=== PATIENT | female | born 1985 | race Caucasian/White ===

== ENCOUNTER 2019-11-29 11:02 | Outpatient (CLI) | payer BC, SELFPAY ==
--- NOTE | 2019-11-29 11:19 | ECG_ITS ---
Measurements Intervals [place] Rate: 59 P: 30 IN: 171 QRS: 19 QRSD: 99 T: 58 QT: 389 QTc: 387 Interpretive Statements SINUS BRADYCARDIA DELAYED PRECORDIAL R/S TRANSITION MINIMAL Q WAVES- INFERIOR LEADS BASELINE ARTIFACT- II, III, AVF BORDERLINE ECG Electronically Signed On 11-29-2019 11:54:56 FLATTENING MACHINE OPERATOR by Abran Goss D.O.
== END 2019-11-29 11:03 | disposition home or self-care (01) ==
DX: R01.1 Cardiac murmur, unspecified (principal); R00.1 Bradycardia, unspecified
CPT/HCPCS: 93005

== ENCOUNTER → 2023-08-07 13:54 | Outpatient (CLI) | payer BC, SELFPAY ==
--- NOTE | ~2023-08-07 | MM_ITS ---
EXAMINATION: MM screening nallely BI w graciela HISTORY: Baseline screening mammogram TECHNIQUE: Craniocaudal and mediolateral oblique 3-D tomosynthesis images were obtained and synthetic 2-D images were generated. CAD analysis was submitted and interpreted. COMPARISON: None, baseline BREAST PARENCHYMAL COMPOSITION: There are scattered areas of fibroglandular density FINDINGS: No suspicious mass, calcification, or architectural distortion are identified in either tiffanie ast to suggest malignancy. IMPRESSION: 1. No mammographic evidence of malignancy. 2. Recommend routine screening mammography in one year. BI-RADS Category 1: Negative Reviewed, dictated and finalized at location A.
== END ==
PROVIDERS: PCP Obstetrics & Gynecology; Visit Provider Obstetrics & Gynecology
DX: Z12.31 Encounter for screening mammogram for malignant neoplasm of breast (principal)
CPT/HCPCS: 77063; 77067

== ENCOUNTER 2023-12-17 16:16 | Outpatient (CLI) | payer OTHER, SELFPAY ==
--- NOTE | ~2023-12-17 | US_ITS ---
EXAMINATION: US abdomen complete DATE: 12/17/2023 17:42 INDICATION: Right-sided abdominal pain TECHNIQUE: Multiple grayscale and Doppler ultrasound images of the abdomen were obtained. COMPARISON: Chest CT dated 12/17/2023 FINDINGS: The pancreatic head and body are normal in appearance. The pancreatic tail is not visualized. Liver has normal echogenicity and contour, with a smooth surface. No liver lesion identified. No intrahepat ic biliary duct dilation suspected. Portal venous flow was seen in the hepatopetal, normal direction and has normal Doppler waveform. The visualized proximal to mid inferior vena cava is normal. Aorta m easures 1.8 cm diameter proximally, 1.6 cm in the mid aorta and tapering to 0.8 cm the distal aorta. The bilateral common iliac arteries each measure 8 mm in diameter. 7 mm nonshadowing nonmobile spheri porter polyp along the otherwise normal-appearing gallbladder. No shadowing cholelithiasis. The common b ile duct measures 3 mm, which is normal. Sonographic Blackwell sign was reported as negative by the sono grapher. There is normal renal contour and echogenicity bilaterally. The right kidney measures 10.2 x 5.2 x 6.3 cm and the left 11.0 x 5.9 x 5.8 cm. The renal pyramids appear echogenic particularly on t he right. 1 cm anechoic left renal cyst. There is no hydronephrosis. The appendix is not identified i n the right lower quadrant. IMPRESSION: 1. Likely benign 7 mm gallbladder polyp. 2. Appendix not visualized in the right lower quadrant. 3. Increased echogenicity of the renal pyramids which has a wide differential including medullary spo nge kidney or renal medullary nephrocalcinosis. Review of prior chest CT demonstrates a few small tiny ateral renal stones the largest on the right measuring up to 4 mm which [facility] likely due to the small size. Reviewed, dictated and finalized at location A. YBACK CLERK IMPRESSION: 1. Likely benign 7 mm gallbladder polyp. 2. Appendix not visualized in the right lower quadrant. 3. Increased echogenicity of the renal pyramids which has a wide differential i ncluding medullary sponge kidney or renal medullary nephrocalcinosis. Review of prior chest CT demonstrates a few small bilateral renal stones the largest on the right measuring up to 4 mm which are not identified on the current ultrasou nd likely due to the small size.
--- NOTE | ~2023-12-17 | CT_ITS ---
EXAMINATION: CTA chest PE protocol DATE: 12/17/2023 16:52 INDICATION: Pleuritic chest pain TECHNIQUE: Computed tomography (CT) pulmonary angiogram of the chest was performed with 100 mL Omnipa que-350 intravenous contrast. Additional 3D reconstructions utilizing coronal maximum intensity proje ction (MIP) were performed. Automated exposure control and iterative reconstruction technique were em ployed. The dose-length product was 349.52 mGy-cm. COMPARISON: None FINDINGS: No pulmonary embolism. No pneumonia, pulmonary edema or other pulmonary infiltrates. No pleural effus ion or pneumothorax. Heart size is normal. No pericardial effusion. Thoracic aorta is normal in calib er with no dissection. No pathologically enlarged thoracic lymphadenopathy. Visualized upper abdomen and bones are unremarkable. IMPRESSION: 1. No pulmonary embolism or other acute cardiopulmonary disease. Reviewed, dictated and finalized at location A. ORMING MACHINE OPERATOR
[2023-12-17 16:48] LABS: Estimated Glomerular Filt Rate > 60
== END 2023-12-17 16:17 | disposition home or self-care (01) ==
LOC: ANHIMG 16:22
PROVIDERS: PCP Emergency Medicine; Visit Provider Emergency Medicine
DX: R07.1 Chest pain on breathing (principal); K82.4 Cholesterolosis of gallbladder
CPT/HCPCS: 71275; 76700; Q9967

== ENCOUNTER 2024-02-03 07:02 | Outpatient (CLI) | payer OTHER, SELFPAY ==
--- NOTE | ~2024-02-03 | CT_ITS ---
EXAMINATION: CT abdomen pelvis wo/w con DATE: 02/03/2024 07:50 INDICATION: Medullar sponge kidney. Renal stones. TECHNIQUE: Computed tomography (CT) of the abdomen and pelvis was performed without and with intraven ous contrast using a total of 130 mL Omnipaque-350 intravenous contrast with a double-bolus technique for simultaneous opacification of the renal parenchyma and renal collecting system. Automated exposu re control and iterative reconstruction technique were employed. The dose-length product was 1178.71 mGy-cm. COMPARISON: Abdomen ultrasound 12/17/2023 FINDINGS: The visualized portions of the lung bases demonstrate mild atelectasis. No pleural effusion. The hear t size is normal. No pericardial effusion. The liver, gallbladder, spleen, pancreas, and adrenal glan ds are normal. There are greater than 10 stones in right kidney measuring up to 4 mm. There are 3 sto joselin in left kidney measuring up to 6 mm. There is cortical thinning of right kidney. There are cysts in the kidneys measuring up to 8 mm on the left. Right ureter is not well opacified distally, but is normal. Left ureter is well opacified and is normal. The bladder is normal. There is an intrauterine device in expected position. There are no dilated loops of bowel. The appendix is normal. There is mi ld lumbar spondylosis. IMPRESSION: 1. Bilateral nonobstructing kidney stones. 2. Cortical thinning of right kidney. Reviewed, dictated and finalized at location A.
[2024-02-03 08:54] LABS: Estimated Glomerular Filt Rate > 60
== END 2024-02-03 07:03 | disposition home or self-care (01) ==
PROVIDERS: PCP Emergency Medicine; Visit Provider Emergency Medicine
DX: E28.2 Polycystic ovarian syndrome (principal); N20.0 Calculus of kidney
CPT/HCPCS: 74178; Q9967

== ENCOUNTER 2025-04-04 15:21 | Outpatient (CLI) | payer OTHER, SELFPAY ==
--- NOTE | ~2025-04-04 | US_ITS ---
Renal-Bladder ultrasound Clinical History: Proteinuria Technique: Real-time sonographic imaging of the kidneys and urinary bladder was performed. Findings: The right kidney measures 10.2 cm in length and the left kidney measures 9.6 cm. There are bilateral nonobstructing stones, measuring up to 9 mm in diameter. No hydronephrosis on either side.. Renal cortical echogenicity is within normal limits. No renal mass lesion is identified. The urinary bladder is moderately distended at the time of this exam. No intraluminal echoes are iden tified. No abnormal wall thickening is seen. Impression: Bilateral nonobstructing renal stones. Reviewed, dictated and finalized at location M. Impression: Bilateral nonobstructing renal stones.
== END 2025-04-04 15:22 | disposition home or self-care (01) ==
LOC: GOSHIMG 15:22
PROVIDERS: PCP Internal Medicine Nephrology; Visit Provider Internal Medicine Nephrology
DX: R80.9 Proteinuria, unspecified (principal); N20.0 Calculus of kidney
CPT/HCPCS: 76775

== ENCOUNTER 2025-09-06 15:34 | Outpatient (CLI) | payer OTHER, SELFPAY ==
--- NOTE | ~2025-09-06 | MM_ITS ---
EXAMINATION: MM screening nallely BI w graciela HISTORY: Screening TECHNIQUE: Craniocaudal and mediolateral oblique 3-D tomosynthesis images were obtained and synthetic 2-D images were generated. CAD analysis was submitted and interpreted. COMPARISON: 08/07/2023 BREAST PARENCHYMAL COMPOSITION: There are scattered areas of fibroglandular density. FINDINGS: There is no evidence of suspicious mass, calcification, or architectural distortion to suggest malignancy in either breast. IMPRESSION: 1. No mammographic evidence of malignancy. 2. Recommend routine screening mammography in one year. BI-RADS Category 1: Negative Reviewed, dictated and finalized at location B. ISH INSTRUCTOR
== END 2025-09-06 15:35 | disposition home or self-care (01) ==
LOC: MICIMG 15:35
PROVIDERS: PCP Obstetrics & Gynecology; Visit Provider Obstetrics & Gynecology
DX: Z12.31 Encounter for screening mammogram for malignant neoplasm of breast (principal)
CPT/HCPCS: 77063; 77067

== ENCOUNTER 2025-09-07 09:33 | Outpatient (CLI) | payer OTHER, SELFPAY ==
--- NOTE | 2025-09-07 10:00 | NEURO_ITS ---
Impression: # Complains of numbness/ generally weak right arm. ? # No Carpal Tunnel Syndrome. ? # No Ulnar Neuropathy ? # Needle/ EMG exam decreased motor unit potentials in Deltoid. ? # Higher involvement needs to be ruled out. Nerve Conduction Studies ?Stim Site NR Peak (ms) P-T Amp (?V) Site1 Site2 Delta-P (ms) Dist (cm) Javed (m/s) Right Median Anti Sensory (2-3nd Digit) Wrist ? 2.7 52.0 Wrist 2-3nd Digit 2.7 14.0 52 Wrist ? 2.7 53.8 Wrist 2-3nd Digit 2.7 14.0 52 Right Radial Anti Sensory (Base 1st Digit) Wrist ? 1.8 22.8 Wrist Base 1st Digit 1.8 0.0 Right Ulnar Anti Sensory (5th Digit) Wrist ? 1.9 53.3 Wrist 5th Digit 1.9 14.0 74 ?Stim Site NR Onset (ms) O-P Amp (mV) Site1 Site2 Delta-0 (ms) Dist (cm) Javed (m/s) Right Median Motor (Abd Poll Brev) Wrist ? 1.6 3.8 Elbow Wrist 4.3 22.0 51 Elbow ? 5.9 4.9 Right Ulnar Motor (Abd Dig Minimi) Wrist ? 2.5 7.2 A Elbow Wrist 4.0 27.0 68 A Elbow ? 6.5 6.8 B Elbow Wrist 2.6 18.0 69 B Elbow ? 5.1 6.5 F Wave Studies ?NR F-Lat (ms) L-R F-Lat (ms) Right Median (Mrkrs) (Abd Poll Brev) ? 24.92 Right Ulnar (Mrkrs) (Abd Dig Min) ? 23.13 Electromyography ?Side Muscle Nerve Root Ins Act Fibs Amp Dur Recrt Comment Right 1stDorInt Ulnar C8-T1 Nml Nml Nml Nml Nml Right Ext Indicis Radial (Post Int) C7-8 Nml Nml Nml Nml Nml Right Ext Digitorum Radial (Post Int) C7-8 Nml Nml Nml Nml Nml Right BrachioRad Radial C5-6 Nml Nml Nml Nml Nml Right PronatorTeres Median C6-7 Nml Nml Nml Nml Nml Right Abd Poll Brev Median C8-T1 Nml Nml Nml Nml Nml Right ABD Dig Min Ulnar C8-T1 Nml Nml Nml Nml Nml Right FlexPolLong Median (Ant Int) C7-8 Nml Nml Nml Nml Nml Right Abd Poll Long Radial (Post Int) C7-8 Nml Nml Nml Nml Nml Right Biceps Musculocut C5-6 Nml Nml Nml >12ms Nml Right Triceps Radial C6-7-8 Nml Nml Nml Nml Nml Right Deltoid Axillary C5-6 Nml Nml Nml >12ms Nml
--- OUTSIDE RECORDS SUMMARY | 2025-09-08 09:20 | XMS_ITS | Clinical Summary ---
Author Organization [facility] Address [address] [place] [address] Care Team Providers Care Senior Reactor Operator Name Role Phone Torsten Maharaj MD Primary Care Provider [phone] Allergies No known active allergies Medications DULoxetine DR (CYMBALTA) 60 mg capsule 12/02/2019 Active spironolactone (ALDACTONE) 50 mg tablet 10/04/2019 Active amLODIPine (NORVASC) 5 mg tablet 12/02/2019 Active ALPRAZolam (XANAX) 0.25 mg tablet Take 0.25 mg by mouth every 8 (eight) hours as needed 11/29/2019 Active xytoc-3-qww-epa -dpa-fish oil 1,050-1,200 mg capsule 1 capsule Active acidophilus-pec tin, citrus 100 million cell-10 mg capsule Take by mouth Active flavoring agent (SPEARMINT FLAVORING MISC) Acti ve LORazepam (Ativan) 2 mg tablet Take one tablet one hour before MRI. May repeat once if not sedated in one hour. 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 Surgical History Surgery Date Site/Laterality Comments CT DELIVERY ONLY Section - (Added by YESI Conv) TONSILLECTOMY Medical History Medical History Date Comments Personal history of other di seases of the circulatory system History of hypertension - (A dded by YESI Conv) Anxiety disorder Anxiety disorde r - (Added by Conv) Allergy status to unspecifie d drugs, medicaments and biological substances status History of seasonal allergie s - (Added by Conv) Hypertension Anxiety PCOS (polycystic ovarian syndrome) Family History Medical History Relation Name Comments Heart disease Father Family history of cardiac disorder - (Added by Conv) Hypertension Father Family history of hypertension - (Added by Conv) Heart disease Maternal Grandfather Family history of cardiac disorder - Relation: Grandfather (Added by Conv) Stroke Maternal Grandfather Family history of cerebrovascular accident (CVA) - Relation: Grandfather (Added by Conv) Cancer Other 1 Family history of malignant neoplasm - (Added by Conv) Diabetes Other 2 Family history of diabetes mellitus - (Added by Conv) Stroke Other 3 Family history of cerebrovascular accident - (Added by Conv) Hypertension Other 4 Family history of hypertension - (Added by Conv) Heart disease Other 5 Family history of cardiac disorder - Relation: Grandmother (Added by Conv) Heart disease Other 6 Family history of cardiac disorder - (Added by Conv) Relation Name Status Comments Father Maternal Grandfather Other 1 Other 2 Other 3 Other 4 Other 5 Other 6 Social History Tobacco Use Types Packs/Day Years Used Date Smoking Tobacco: Never Tobacco Cessation:Counseling Given: No Alcohol Use Standard Drinks/Week Comments Not Currently 0 (1 standard drink = 0.6 oz pur e alcohol) Comments Unknown Sex and Gender Information Value Date Recorded Sex Assigned at Not on file Legal Sex Female 8:31 AM 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 HEAD END Gender Identity Female 08/09/2024 8:56 AM CDT Sexual Orientation Straight 08/09/2024 8: 56 AM CDT Last Filed Vital Signs Vital Sign Reading Time Taken Comments Blood Pressure 137/92 05/24/2020 1:21 PM CDT Pulse 82 05/24/2020 1:21 PM CDT Temperature 36.3 C (97.3 F) 05/24/2020 1:21 PM CDT Respiratory Rate - - Oxygen Saturation 98% 12/27/2013 2:00 PM DESIZING MACHINE OPERATOR HEAD END Inhaled Oxygen Concentration - - Weight 76.2 kg (168 lb) 05/24/2020 1:21 PM CDT Height 152.4 cm (5') 05/24/2020 1:21 PM CDT Body Mass Index 32.81 05/24/2020 1:21 PM CDT Plan of Treatment Not on file Insurance [facility] Care Teams Senior Reactor Operator Relationship Specialty Start Date End Date Torsten Maharaj MD [address] [place] [id number] PCP - General Family Medicine 12/09/19
--- OUTSIDE RECORDS SUMMARY | 2025-09-08 09:20 | XMS_ITS | Clinical Summary ---
Author Organization [facility] Address [address] [place] [id number] Care Team Providers Care Compositor Apprentice Name Role Phone Unavailable Primary Care Provider Unavailabl e Social History Tobacco Use Types Packs/Day Years Used Date Smoking Tobacco: Never Assessed Comments Unknown Sex and Gender Information Value Date Recorded Sex Assigned at Not on file Legal Sex Female 7:11 PM CDT Gender Identity Not on file Sexual Orientation Not on file Plan of Treatment Health Maintenance Due Date Last Done Comments Cervical Cancer Screening Pa p Smear (Age 30 to 64) Every 3 Years 1983 Annual Physical 1986 Hepatitis C 2001 DTaP, Tdap and Td Vaccines ( 1 - Tdap) 2002 Hepatitis B Vaccines (1 of 3 - 19+ 3-dose series) 2002 HPV Vaccines (1 - 3-dose SCD M series) 2010 Cervical Cancer Screening Pa p with HPV Testing (Age 30 to 64) Every 5 Years 2013 Cervical Cancer Screening with HPV 2013 Mammogram Screening 2023 COVID-19 Vaccine (2024-2 6 season) 2025 Influenza Adult (#1) 2025 Hepatitis A Vaccines Aged Out No long er eligible based on patient's age to complete this topic Meningococcal B Vaccine Aged Out No l onger eligible based on patient's age to complete this topic Meningococcal Vaccine Aged Out No abram felipe eligible based on patient's age to complete this topic Pneumococcal Vaccine: Pediat rics (0 to 5 Years) and At-Risk Patients (6 to 49 Years) Aged Out No longer eligible b ased on patient's age to complete this topic RSV Immunizations Under 20 Months Aged Out No longer eligible based on patient's age to complete this topic
--- OUTSIDE RECORDS SUMMARY | 2025-09-08 09:20 | XMS_ITS | Data Portability ---
Author Organization [place] [facility] [employer], Main Office Address [address] [place] [address] Care Team Providers Care Dobby Looms Pegger Name Role Phone RAMANA POMPA Primary Care Provider RAMANA POMPA Referring Provider Assessment Encounter Date Assessment Date Assessment LastModified by Organization Details LastModified Time 09/01/2024 09/01/2024 39-year-old female presents for evaluation of her right knee. She reports an injury a couple weeks ago when she was running and felt a pulling sensation in her leg. Since then she has had decreased motion and flexibility. She currently rates her pain as 2/10. She has not had any treatments for this. She has a history of previous right meniscus and ACL repair in 2015. Review of systems per patient questionnaire Physical exam: Range of motion 5-130. She has mild tenderness over the medial joint line. She has crepitus with range of motion. Negative Harjinder's. 2A Estefani, stable posterior drawer, stable varus valgus stress. X-rays were reviewed, demonstrating postsurgical changes with a button on the femoral side. She has degenerative changes medially with [id number]-py-pmvz joint space narrowing, osteophytes, sclerosis. She also has patellofemoral degenerative changes as well. She is feeling okay at this point, rates her pain as 2/10. She wants to do some physical therapy for her knee. We order that for her. She will follow up as needed, and be activities as tolerated. [email or web address] Not available 09/01/2024 17:54:34 Plan of Treatment Reminders Order Date Submit Date Provider Last Modified By Organization Details Last Modified Time Details Appointments None recorded. Lab None recorded. Referral physical therapist referral - PLEASE CONTACT PATIENT TO SCHEDULE 2023 024 [employer], [address], [place], [address], 5 07:56:50 Procedures None recorded. Surgeries None recorded. Imaging XR, knee, 3 view 2023 024 [email or web address], [address], [place], [address], 4 08:29:39 Medication Orders None recorded. Patient TargetsNo targets recorded. Patient InstructionsNo instructions recorded. Reason for Referral Physical Therapist Referral for Pain of right knee joint PLEASE CONTACT PATIENT TO SCHEDULE Referring Physician: Torsten Clark, Orthopedic Surgery, Encounter Date: 09/01/2024 Results Created Date Observation Date Name Description Value Unit Range Abnormal Flag Note LastModifiedBy Organization Detail LastModifiedTime 08/22/2008/24/2021 IGP, APTIM A HPV HPV aptima negati ve negati ve This nucle ic acid ampli ficat ion test detec ts fourt een high- risk HPV types (16,1 8,31, 33,35 ,39,4 5,51, 52,56 ,58,5 9,66, 68) witho ut diffe renti ation . Not Available [facility] [address] [facility], [address], 08/27/2021 11:09:07 08/22/2008/27/2021 IGP, APTIM A HPV diagnosis: commen t NEGAT SREEDHAR FOR INTRA EPITH ELIAL LESIO N OR ISAAC BERRY . Not Available [facility] [address] [facility], [address], 08/27/2021 11:09:07 08/22/20 21 08/27/2021 IGP, APTIM A HPV specimen adequacy: commen t Satis facto ry for evalu ation . Endoc ervic al and/o r squam ous metap lasti c cells (endo cervi porter compo nent) are prese nt. Not Available [facility] [address] [place], [address], 08/27/2021 11:09:07 08/22/20 21 08/27/2021 IGP, APTIM A HPV clinician provided ICD10: saritha capellan Z01.4 19 Not Available [facility] [address] [place], [address], 08/27/2021 11:09:07 08/22/20 21 08/27/2021 IGP, APTIM A HPV performed by: saritha Sorto , Cytotimi capellan (ASCP ) Not Available [facility] [address] [place], [address], 08/27/2021 11:09:07 08/22/20 21 08/27/2021 IGP, APTIM A HPV . . Not Available [facility] [address] [place], [address], 08/27/2021 11:09:07 08/22/20 21 08/27/2021 IGP, APTIM A HPV note: saritha t The Pap smear is a scree carlitos test desig sarah to aid in the detec tion of ralph ligna nt and malig nant condi tions of the uteri ne cervi x. It is not a diagn ostic proce dure and shoul d not be used as the sole means of detec ting cervi porter cance r. Both false -posi tive and false -nega tive repor ts do occur . Not Available [facility] [address] [place], [address], 08/27/2021 11:09:07 08/22/20 21 08/27/2021 IGP, APTIM A HPV test methodology: saritha t This liqui d based ThinP rep(R ) pap test was scree sarah with the use of an image guide d syste m. Not Available [facility] [address] [place], [address], 08/27/2021 11:09:07 09/01/20 24 XR, knee, 3 view No observ ation record ed. [email or web address] [facility] [address], [place], [place], [address], 09/01/2024 15:35:17 Result Notes None recorded. Problems Name Problem SNOMED Code Status Onset Date Resolution Date Notes Provider Name and Address Organization Details Recorded Time History of depression 135511079 Active Not Available [facility] 3 16:58:45 Anovulatio n 88336253 Active Not Available [facility] 3 16:58:45 Anxiety 24832039 Active Not Available [facility] 3 16:58:45 Obstructiv e sleep apnea syndrome 55029176 Active 2021 Not Available [facility] 3 16:58:45 Pain of right ankle joint 5531573259723 9106 Active 2023 STEPHENIE Barry, [place] [employer] [facility] [email or web address] [facility] 4 15:34:59 Pain of right knee joint 6421059554130 00 Active 2023 STEPHENIE Barry, [employer] [facility] 4 15:35:19 Problem Notes None recorded. 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 Procedure Notes None recorded. Medical Equipment None Reported. Medications Name Sig Start Date Stop Date Status Note LastModified by Organization Details LastModified Time quetiapine 25 mg tablet 09/01 completed Not Available Not Available Not Available amoxicillin 500 mg capsule 01/23 completed Not Available Not Available Not Available Mirena 21 mcg/24 hr (up to 8 years) 52 mg intrauterin e device Take 1 device by intrauter ine route. active Not Available Not Available No t Available levetiracet am 500 mg tablet active Not Available Not Available Not Available hydrocodone 5 mg-acetamin ophen 325 mg tablet active Not Available Not Available No t Available clonazepam 0.5 mg tablet TAKE 1/2 (ONE-HALF ) TABLET BY MOUTH ONCE DAILY DIRECTED 09/01 completed Not Available Not Available Not Available spironolact one 100 mg tablet Take 1 tablet every day by oral route. 09/01 completed Not Available Not Available Not Available phentermine 37.5 mg tablet TAKE 1 TABLET BY MOUTH ONCE DAILY BEFORE BREAKFAST active Not Available Not Available No t Available amlodipine 5 mg tablet TK 1 T PO QD active Not Available Not Available No t Available sulfamethox azole 800 mg-trimetho prim 160 mg tablet TAKE 1 TABLET BY MOUTH EVERY 12 HOURS 09/01 completed Not Available Not Available Not Available ketorolac 10 mg tablet active Not Available Not Available Not Available alprazolam 0.25 mg tablet TAKE 1 TABLET BY MOUTH EVERY 8 HOURS NEEDED 08/22 completed Not Available Not Available Not Available lorazepam 2 mg tablet TAKE ONE TABLET BY MOUTH ONE HOUR BEFORE MRI. MAY REPEAT ONCE IF NOT SEDATED IN ONE HOUR. DO NOT DRIVE. 08/16 completed Not Available Not Available Not Available amlodipine 10 mg tablet 09/01 completed Not Available Not Available Not Available cephalexin 500 mg capsule active Not Available Not Available Not Available hydrochloro thiazide 12.5 mg capsule TK 1 C PO D 08/16 completed Not Available Not Available Not Available Provera 10 mg tablet Take 1 tablet every day by oral route for 10 days. 10/04 completed Not Available Not Available Not Available lorazepam 1 mg tablet 01/23 completed Not Available Not Available Not Available methylpredn isolone 4 mg tablets in a dose pack 01/23 completed Not Available Not Available Not Available norethindro ne (contracept sreedhar) 0.35 mg tablet TK 1 T PO QD 08/16 completed Not Available Not Available Not Available fluticasone propionate 50 mcg/actuati on nasal spray,suspe nsion INHALE 1 SPRAY IN EACH NOSTRIL BID active Not Available Not Available No t Available spironolact one 50 mg tablet TAKE 1 TABLET BY MOUTH ONCE DAILY active Not Available Not Available No t Available modafinil 100 mg tablet 09/01 completed Not Available Not Available Not Available escitalopra m 10 mg tablet TK ONE T PO D 09/01 completed Not Available Not Available Not Available escitalopra m 20 mg tablet 08/16 completed Not Available Not Available Not Available Ciprodex 0.3 %-0.1 % ear drops,suspe nsion active Not Available Not Available Not Available bupropion HCl XL 150 mg 24 hr tablet, extended release 08/22 completed Not Available Not Available Not Available escitalopra m 5 mg tablet TAKE 1 TABLET BY MOUTH A ONE TIME DOSE DIRECTED 09/01 completed Not Available Not Available Not Available hydrocodone 7.5 mg-acetamin ophen 325 mg/15 mL oral solution 01/23 completed Not Available Not Available Not Available nitrofurant oin monohydrate /macrocryst als 100 mg capsule TAKE 1 CAPSULE BY MOUTH TWICE DAILY FOR 5 DAYS 11/28 completed Not Available Not Available Not Available duloxetine 30 mg capsule,del ayed release TAKE 1 CAPSULE BY MOUTH ONCE DAILY DIRECTED 09/01 completed Not Available Not Available Not Available duloxetine 60 mg capsule,del ayed release TK ONE C PO D 11/28 completed Not Available Not Available Not Available ProAir HFA 90 mcg/actuati on aerosol inhaler INL 2 PFS PO QID PRN active Not Available Not Available No t Available Zenchent (28) 0.4 mg-35 mcg tablet TK 1 T PO ONCE D 01/23 completed Not Available Not Available Not Available Faye 3 mg-0.03 mg tablet 1 tablet PO daily 01/23 completed Not Available Not Available Not Available Vicodin 5 mg-300 mg tablet TK 1 TO 2 TS PO Q 6 H PRN 01/23 completed Not Available Not Available Not Available Vitals Date Recorded Body mass index (BMI) Body height Body weight Provider Name and Address Organization Details Last Updated DateTime 11/28/2021 31.8 kg/m2 152.4 cm 53362.56 g Not Available [employer] 01/01/2023 16:58:01 Date Recorded Body mass index (BMI) Body height Body weight Systolic And Diastolic Provider Name and Address Organization Details Last Updated DateTime 08/22/2021 30.1 kg/m2 152.4 cm 90338.22 g 118/80 mm[Hg] Not Available [facility] 01/01/2023 16:58:01 Date Recorded Body height Body mass index (BMI) Body weight Pain severity - 0-10 verbal numeric rating [Score] - Reported Provider Name and Address Organization Details Last Updated DateTime 09/01/2024 152.4 cm 27.9 kg/m2 16063.71 g 2 STEPHENIE Barry [place] [facility] [place] [employer] [facility] 09/01/2024 15:31:56 Date Recorded Body mass index (BMI) Body height Oxygen saturation Oxygen saturation in Arterial blood by Pulse oximetry Heart rate Body weight Systolic And Diastolic Provider Name and Address Organization Details Last Updated DateTime 31.4 kg/m2 152.4 cm 97 % 97 % 63 /min 75666.3 7 g 122/68 mm[Hg] Not Available [facility] 16:58:01 Social History Question Answer Notes LastModified by [employer] Details LastModified Time Tobacco Smoking Status Never Smoker Not Available [facility] 01/01/2023 16:57:10 What Is Your Level Of Caffeine Consumption? Occasional [id number] Information not available 01/01/2023 What Was The Date Of Your Most Recent Tobacco Screening? 09/01/2024 Information not available 09/01/2024 Do You Use Your Seat Belt Or Car Seat Routinely? Yes [id number] Information not available 01/01/2023 Sex: Unknown Functional Status Question Answer Note LastModified by [employer] Details LastModified Time Do you use any illicit or recreational drugs? No [id number] Information not available 01/01/2023 Do you or have you ever used any other forms of tobacco or nicotine? No [id number] Information not available 01/01/2023 What is your level of alcohol consumption? 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 Occasional [id number] Information not available 01/01/2023 Mental Status None recorded. Family History Relationship Description Onset Age of this Age Resolved Age Notes LastModified by Organization Details LastModified Time Father Heart disease [id number] Not available 01/01/2023 16:57:17 Father Hypertensive disorder [id number] Not available 01/01/2023 16:57:17 Medical History Condition Response ANXIETY DISORDER Y FEMALE PROBLEMS / INFECTIONS Y DEPRESSION (INCLUDING POST ) Y HYPERTENSION Y Gynecological History Statement/Question Response Abnormal Pap N Date of LMP Date of Last Pap 08/22/2021 Date of Last Pap Smear 01/23/2018 Current Control Method IUD Age at Menarche 11 Breast Problems no Obstetrics History GPAL:G 1 P 1 0 0 1 Type Value Full Term 1 Living 1 Total 1 Past Encounters Encounter ID Performer Location Encounter Start Date Encounter Closed Date Diagnosis/Indication Diagnosis SNOMED-CT Code Diagnosis ICD10 Code Diagnosis IMO Codes Diagnosis Note [id number] [facility]_M I[facility]_ DEFAULT_1 _1 , 08/22/2021 00:00:00 08/22/2021 09:45:50 [id number] [facility] [place] [address] [place] [id number] 10/18/2021 00:00:00 10/18/2021 17:18:09 [id number] [facility] [place] [address] [place] [id number] 11/28/2021 00:00:00 11/28/2021 15:38:34 [id number] Torsten Clark MD [facility] [place] [address] [place] [id number] 09/01/2024 15:03:59 09/01/2024 16:18:46 Pain of right knee joint 7841511343 50449 M25.561 Health Concerns Section Related Observation LastModified by Organization Detai ls LastModified Time None Recorded Concern Status LastModified by Organization Details LastModified Time None Recorded Advance Directives Directive None Recorded Payers Insurance Date Sequence Insurance Name Policy Number Policy Shirley Covered Member ID Shirley Member ID Guarantor Name 09/01/2024 1 [facility] [id number] Eh Klein [id number] Elise Klein 09/01/2024 1 [employer] [id number] L Elise Klein [id number] Elise Klein OBGyn Episode No OBEpisode recorded.
== END 2025-09-07 09:34 | disposition home or self-care (01) ==
PROVIDERS: PCP Emergency Medicine; Visit Provider Emergency Medicine
DX: G56.91 Unspecified mononeuropathy of right upper limb (principal)
CPT/HCPCS: 95886; 95909

== ENCOUNTER 2025-09-12 08:51 | Outpatient (CLI) | payer OTHER, SELFPAY ==
--- NOTE | ~2025-09-12 | XR_ITS ---
EXAMINATION: XR wrist RT min 3V, 09/12/2025 8:59 LUMBER CHECKER HISTORY: Carpal tunnel syndrome; RT WRIST PAIN x1 YR COMPARISON: No comparisons available. Findings: No acute fracture or malalignment. No significant degenerative changes. Soft tissues unremarkable. Impression: No acute fracture or malalignment. Reviewed, dictated and finalized at location P. ER CHECKER Impression: No acute fracture or malalignment.
--- OUTSIDE RECORDS SUMMARY | 2025-09-12 09:15 | XMS_ITS | Clinical Summary ---
Author Organization [facility] Medical Office Building [address] Address [address] [place] [address] Care Team Providers Care Lumber Salvager Name Role Phone Torsten Maharaj MD Primary Care Provider [phone] Allergies No known active allergies Medications DULoxetine DR (CYMBALTA) 60 mg capsule 12/02/2019 Active spironolactone (ALDACTONE) 50 mg tablet 10/04/2019 Active amLODIPine (NORVASC) 5 mg tablet 12/02/2019 Active ALPRAZolam (XANAX) 0.25 mg tablet Take 0.25 mg by mouth every 8 (eight) hours as needed 11/29/2019 Active lffak-6-euh-epa -dpa-fish oil 1,050-1,200 mg capsule 1 capsule [...] 12/27/2013 Surgical History Surgery Date Site/Laterality Comments [place] DELIVERY ONLY Section - (Added by YESI [...] on file Legal Sex Female 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 Gender Identity Female 08/09/2024 8:56 AM CDT Sexual Orientation Straight 08/09/2024 8: 56 AM CDT Last Filed Vital Signs Vital Sign Reading Time Taken Comments Blood Pressure 137/92 05/24/2020 1:21 PM CDT Pulse 82 05/24/2020 1:21 PM CDT Temperature 36.3 C (97.3 F) 05/24/2020 1:21 PM CDT Respiratory Rate - - Oxygen Saturation 98% 12/27/2013 2:00 PM ENVIRONMENTAL ATTORNEY Inhaled Oxygen Concentration - - Weight 76.2 kg (168 lb) 05/24/2020 1:21 PM CDT Height 152.4 cm (5') 05/24/2020 1:21 PM CDT Body Mass Index 32.81 05/24/2020 1:21 PM CDT Plan of Treatment Not on file Insurance [facility] Care Teams Lumber Salvager Relationship Specialty Start Date End Date Torsten Maharaj MD [address] [place] [id number] PCP - General Family Medicine 12/09/19
--- OUTSIDE RECORDS SUMMARY | 2025-09-12 09:15 | XMS_ITS | Clinical Summary ---
Author Organization [facility] Address [address] [place] [address] Care Team Providers Care Glue Line Operator Name Role Phone Unavailable Primary Care Provider [...] HPV 2013 Mammogram Screening 2023 COVID-19 Vaccine ( - 2024-2 6 season) 2025 Influenza Adult (#1) 2025 [...]
== END 2025-09-12 08:52 | disposition home or self-care (01) ==
PROVIDERS: PCP Emergency Medicine; Visit Provider Plastic Surgery
DX: G56.01 Carpal tunnel syndrome, right upper limb (principal)
CPT/HCPCS: 73110